=== PATIENT | female | born 1945 | race Caucasian/White ===

== ENCOUNTER 2022-01-22 12:10 | Emergency (ER) | payer SELFPAY ==
[~2022-01-22] VITALS: Ht 142.2 cm; Wt 62.6 kg
[2022-01-22 12:22] VITALS: BP 150/56
--- NOTE | 2022-01-22 12:40 | NUR ---
AMBULATED TO BED 8
--- NOTE | 2022-01-22 13:28 | NUR ---
COLLETTE FORD AT BEDSIDE FOR EVALUATION
[2022-01-22] MEDS ORDERED: KETOROLAC 30 MG/ML VIAL IM ONE (13:35)
[2022-01-22] MEDS ORDERED: DICL20GE TP (13:41)
[2022-01-22] MEDS ORDERED: ACET-10509 PO (13:41)
--- NOTE | 2022-01-22 13:43 | NUR ---
77YO FEMALE PT C/O INCREASED 10 R KNEE PAIN XTODAY. PT HAS CHRONIC KNEE PAIN THAT RELIEVES AFTER TAKING RX GIVEN BY PCP, DENIES RELIEF TODAY. KNEE PRESENTS W/O VISIBLE INJURY AND NON TENDER TO TOUCH. AMBULATORY USING CANE. PT AAOX4, RESPIRATIONS EVEN AND UNLABORED. HOB POSITIONED PER COMFORT HX: HTN, DIABETES NKA
[2022-01-22 14:15] VITALS: BP 148/60
--- NOTE | 2022-01-22 14:15 | NUR ---
Patient discharged with v/s stable. Written and verbal after care instructions FOR OSTEOATHRITIS given and explained. Patient alert, oriented and verbalized understanding of instructions. Ambulatory with steady gait. All questions addressed prior to discharge. ID band removed. Patient advised to follow up with PMD. Rx of TYLENOL XTRA STRENGTH AND VOLTAEREN ARTHRITIS PAIN given. Opportunity to ask questions provided and answered.
--- NOTE | 2022-01-22 14:36 | NUR ---
The patient's care was reviewed and supervised by Josefina Hinton RN.
== END 2022-01-22 14:15 | disposition home or self-care (01) ==
LOC: MED 12:10
DX: G89.29 Other chronic pain (principal); M25.561 Pain in right knee; E11.9 Type 2 diabetes mellitus without complications; I10 Essential (primary) hypertension; Z79.899 Other long term (current) drug therapy
CPT/HCPCS: 73564; 96372; 99283; J1885